=== PATIENT | female | born 2000 | race Two or more races ===

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

== ENCOUNTER 2024-11-18 10:11 | Day surgery (SDC) | payer BC ==
[~2024-11-18 10:11] MED LIST changes: +Acetaminophen/HYDROcodone 325-5 MG Tab PO PRN; +Dexamethasone 4 MG/ML 5 ML MDV ONE; -Lactated Ringers 1,000 ML IV SCH; -Lidocaine 1%/Sod Bicarbonate in NS 8.4% 1 ML Syringe PRN; +Midazolam 1 MG/ML 2 ML SDV ONE; +Ondansetron 4 MG/2 ML SDV ONE; +Propofol 200 MG/20 ML SDV ONE; +Ropivacaine 0.5% 5 MG/ML 30 ML SDV ONE; -Sodium Chloride 0.9% 10 ML Syringe FLUSH PRN; +fentaNYL 250 MCG/5 ML SDV ONE; +propofoL 500 MG/50 ML 50 ML ONE
[2024-11-18] MEDS: Scopalamine 1mg/3day Transdermal Patch TRDERM PRN (10:25)
[2024-11-18] MEDS ORDERED: Scopalamine 1mg/3day Transdermal Patch TOP ONE (10:29)
[2024-11-18] MEDS: Lactated Ringers 1,000 ML IV SCH (10:35)
[2024-11-18] MEDS ORDERED: Ketamine HCL/NACL, ISO-OSM 50 MG/5 ML Syringe ONE (11:53)
[2024-11-18] MEDS ORDERED: propofoL 500 MG/50 ML 50 ML ONE (11:56)
[2024-11-18] MEDS ORDERED: dexmedeTOMIDine HCl 200 MCG/2 ML SDV ONE (11:58)
[2024-11-18] MEDS ORDERED: droPERidol 2.5 MG/ML SDV ONE (11:59)
[2024-11-18] MEDS ORDERED: Lactated Ringers 1,000 ML IV ONE (12:00)
[2024-11-18] MEDS ORDERED: Ondansetron 4 MG/2 ML SDV IVPUSH PRN (12:17)
[2024-11-18] MEDS ORDERED: Propofol 200 MG/20 ML SDV ONE (12:31)
[2024-11-18] MEDS: fentaNYL 100 MCG/2 ML SDV IVPUSH PRN (13:18)
[2024-11-18 15:28] VITALS: PULSE 78
[2024-11-18 15:29] VITALS: BP 132/74
== END 2024-11-18 15:03 | disposition home or self-care (01) ==
LOC: JD.SDS 10:11
PROVIDERS: ATTEND Orthopaedic Surgery
DX: S86.011A Strain of right Achilles tendon, initial encounter (principal); E66.9 Obesity, unspecified; Z68.30 Body mass index [BMI] 30.0-30.9, adult; Z79.82 Long term (current) use of aspirin; Z79.899 Other long term (current) drug therapy
CPT/HCPCS: 27650; 64445; 81025; A9270; J0690; J1100; J1790; J2250; J2405; J2704; J2795; J3010; J7120; 01472; 64450; J0665; J3490